=== PATIENT | female | born 1945 | race African-American/Black ===

== ENCOUNTER 2022-11-09 17:39 | Inpatient (IN) | payer MEDICARE, OTHER ==
[~2022-11-09] VITALS: Ht 167.6 cm; Wt 83.0 kg
[~2022-11-09 17:39] MED LIST: ALBU-118 IH; ASCO500S14 PO; ASPI-1205 PO; CALC600T56 PO; FURO-570 PO; HUM SUBQ; LANTUS SC; LOT20 PO; METF100028 PO; MOME13HF7 IH; MONT10TA35 PO; PRAV40TA1 PO; SPIR50TA PO
[2022-11-09 17:48] VITALS: BP 94/43
--- NOTE | 2022-11-09 17:51 | NUR ---
PT BIBA WITH ALS TO BED 6
[2022-11-09] MEDS ORDERED: methylPREDNISolone SS 125 MG/2 ML VIAL IVP ONE (17:55)
[2022-11-09] MEDS ORDERED: NACL 0.9% 500 ML IV ONE (17:55)
--- NOTE | 2022-11-09 18:08 | NUR ---
Lab at bedside
--- NOTE | 2022-11-09 18:24 | NUR ---
PER DR ALBARRAN, HOLD SOLUMEDROL IV
--- NOTE | 2022-11-09 18:35 | NUR ---
77 y/o female biba from home c/o difficulty breathing x 4 days. Patient has a cough with occasional productive cough. Patient also has low appetite. Patient denies any fever, chills or SOB. Patient has 20G IV to Left AC by EMS. Patient was also administered a breathing treatment by EMS. Medical History: DM, HTN, Asthma, Emphysema, NKDA
--- NOTE | 2022-11-09 18:37 | NUR ---
X-Ray at bedside.
[2022-11-09 18:41] LABS: HEMATOCRIT 35.6 % (36-48); HEMOGLOBIN 11.6 g/dL (12.0-16.0); MEAN CORPUSCULAR HEMOGLOBIN 30 pg (27-31); MEAN CORPUSCULAR HGB CONC 33 g/dL (33-37); MEAN CORPUSCULAR VOLUME 90.6 fL (80-94); PLATELET COUNT (AUTO) 362 K/uL (140-450); RED BLOOD CELL COUNT(AUTO) 3.93 MIL/uL (4.20-5.40); RED CELL DISTRIBUTION WIDTH 14.7 % (11.6-13.7)
[2022-11-09 18:57] LABS: WHITE BLOOD COUNT (AUTO) 30.2 K/uL (4.8-10.8)
[2022-11-09] MEDS ORDERED: VANCOMYCIN 1,000 MG in DEXTROSE 5% 250 ML IV ONE (19:15)
[2022-11-09] MEDS ORDERED: NACL 0.9% 1,000 ML IV ONE (19:15)
[2022-11-09] MEDS ORDERED: PIPERACILLIN/TAZOBACTAM 3.375 GM in DEXTROSE 5% 50 ML IV ONE (19:15)
[2022-11-09 19:17] LABS: ALBUMIN 1.6 g/dL (3.4-5.0); ANION GAP 21.4 (8-16); ASPARTATE AMINOTRANSFERASE 13 U/L (15-37); CARBON DIOXIDE 20.1 mmol/L (21-32); CHLORIDE 95 mmol/L (98-107); CREATININE 1.9 mg/dL (0.6-1.3); LYMPHOCYTES % (MANUAL) 2 % (20-46); MONOCYTES % (MANUAL) 2 % (5-12); POTASSIUM 4.5 mmol/L (3.5-5.1); SODIUM SERUM 132 mmol/L (136-145); UREA NITROGEN, BLOOD 40 mg/dL (7-18)
[2022-11-09 19:20] LABS: GLUCOSE 413 mg/dL (74-106)
--- NOTE | 2022-11-09 19:45 | NUR ---
RETURNED FROM [facility], UNABLE TO OBTAIN UA
[2022-11-09] MEDS ORDERED: PIPERACILLIN/TAZOBACTAM 3.375 GM VIAL IV ONE (19:57)
[2022-11-09] MEDS ORDERED: VANCOMYCIN 1,000 MG VIAL ONE (19:57)
--- NOTE | 2022-11-09 22:03 | NUR ---
PT TO BE ADMITTED HERE
[2022-11-09 22:08] LABS: PHOSPHORUS 3.1 mg/dL (2.5-4.9)
--- NOTE | 2022-11-09 22:10 | NUR ---
CM NOW SHOWS RAPID A-FIB RATE 150-160.
--- NOTE | 2022-11-09 22:18 | NUR ---
[facility] OBTAINED AND SENT TO LAB
[2022-11-09] MEDS ORDERED: AMIODARONE 150 MG in DEXTROSE 5% 100 ML IV ONE (22:30)
[2022-11-09] MEDS ORDERED: AMIODARONE 150 MG/3 ML VIAL IV ONE (22:30)
[2022-11-09] MEDS ORDERED: AMIODARONE 450 MG in DEXTROSE 5% 250 ML IV ONE (22:30)
--- NOTE | 2022-11-09 23:08 | NUR ---
TO CT VIA GURNEY ATTACHED TO CM ACCOMPANIED BY RN AND CATALOG SPECIALIST. AMIODARONE CONTINUES
--- NOTE | 2022-11-09 23:25 | NUR ---
RETURNED FROM CT
--- NOTE | 2022-11-10 01:00 | NUR ---
RESTING QUIETLY AT PRESENT, AMIODARONE CONTINUES, CM = A-FIB, HR DOWN, IS NOW 100-104
--- NOTE | 2022-11-10 02:00 | NUR ---
Patient appears to be resting comfortably in bed. Vital Signs within normal limits. Respirations even and unlabored.
--- NOTE | 2022-11-10 04:00 | NUR ---
CM NOW SHOWS SR WITHOUT ECTOPY. AMIODARONE CONTINUES.
[2022-11-10] MEDS ORDERED: ACETAMINOPHEN 325 MG TAB PO PRN (05:00)
[2022-11-10] MEDS ORDERED: VANCOMYCIN PER PHARMACY MC PRN ×2 (05:00→08:10)
[2022-11-10] MEDS ORDERED: ONDANSETRON 4 MG/2 ML VIAL IVP PRN (05:00)
--- NOTE | 2022-11-10 05:28 | NUR ---
CALL TO DR CORTES Addendum: 11/10/22 at [address] CORTES CONTINUE AMIODORONE DRIP AT 0.5MG/MIN. ORDER CARRIED OUT.
--- NOTE | 2022-11-10 05:46 | NUR ---
urine collected and sent to lab.
[2022-11-10] MEDS ORDERED: DEXTROSE 50% 50 ML SYR IVP PRN (05:50)
[2022-11-10] MEDS: DEXT 5% /NACL 0.9% 1,000 ML IV SCH ×3 (06:00→19:55)
[2022-11-10] MEDS: PIPERACILLIN/TAZOBACTAM 3.375 GM in DEXTROSE 5% 50 ML IV SCH ×3 (06:02→18:33)
[2022-11-10] MEDS ORDERED: PIPERACILLIN/TAZOBACTAM 3.375 GM VIAL IV ONE ×2 (06:04→12:12)
[2022-11-10 06:10] LABS: APPEARANCE,URINE CLEAR (CLEAR); BILIRUBIN,URINE 2+ (NEGATIVE); BLOOD, URINE NEGATIVE (NEGATIVE); COLOR,URINE DARK YELLOW (YELLOW); LEUKOCYTE ESTERASE ,URINE NEGATIVE (NEGATIVE); NITRITE, URINE NEGATIVE (NEGATIVE); UGLUCOSE 1+ (NEGATIVE)
[2022-11-10] MEDS ORDERED: AMIODARONE 450 MG in DEXTROSE 5% 250 ML IV SCH (07:32)
--- NOTE | 2022-11-10 08:15 | NUR ---
BS 385
--- NOTE | 2022-11-10 08:16 | NUR ---
Received pt on Amiodarone drip running at 0.5mg/min, 16.66ml/hr.
--- NOTE | 2022-11-10 08:16 | NUR ---
Pt on RA with 98% O2 saturation.
[2022-11-10] MEDS: BLOOD GLUCOSE MONITORING 1 DEV DEV FS SCH ×4 (08:20→21:40)
[2022-11-10] MEDS: INSULIN LANTUS 100 UNITS/ML 10 ML VIAL SUBQ SCH (08:24)
[2022-11-10] MEDS: INSULIN LISPRO SLIDING SCALE 100 UNITS/ML VIAL SUBQ PRN ×3 (08:24→21:39)
[2022-11-10] MEDS: DOCUSATE SODIUM 100 MG GELCAP PO SCH (08:26)
--- NOTE | 2022-11-10 09:13 | NUR ---
PATIENT HAS BEEN SCREENED AND CATEGORIZED MODERATE NUTRITION RISK. PATIENT WILL BE SEEN WITHIN 3-5 DAYS OF ADMISSION. REVIEWED BY JUDAH BUCHANAN RD
--- NOTE | 2022-11-10 09:52 | NUR ---
Pt ambulated to restroom with steady gait.
--- NOTE | 2022-11-10 11:05 | NUR ---
Maintainer Plant radha.
[2022-11-10 11:12] LABS: BASOPHILS % (AUTO) 0.2 % (0.0-2.0); EOSINOPHILS % (AUTO) 0.2 % (0.0-4.0); HEMOGLOBIN 10.8 g/dL (12.0-16.0); LYMPHOCYTES # (AUTO) 1.2 K/uL (2.5-16.5); LYMPHOCYTES % (AUTO) 6.3 % (20.5-51.1); MEAN CORPUSCULAR HEMOGLOBIN 30 pg (27-31); MEAN CORPUSCULAR HGB CONC 33 g/dL (33-37); MEAN CORPUSCULAR VOLUME 89.7 fL (80-94); MONOCYTES % (AUTO) 5.3 % (1.7-9.3); NEUTROPHILS # (AUTO) 16.4 K/uL (1.8-7.7); PLATELET COUNT (AUTO) 366 K/uL (140-450); RED BLOOD CELL COUNT(AUTO) 3.68 MIL/uL (4.20-5.40); RED CELL DISTRIBUTION WIDTH 14.7 % (11.6-13.7); WHITE BLOOD COUNT (AUTO) 18.7 K/uL (4.8-10.8)
[2022-11-10 11:20] LABS: ALBUMIN 1.9 g/dL (3.4-5.0); ANION GAP 16.1 (8-16); ASPARTATE AMINOTRANSFERASE 9 U/L (15-37); CARBON DIOXIDE 22.3 mmol/L (21-32); CHLORIDE 102 mmol/L (98-107); CREATININE 1.5 mg/dL (0.6-1.3); GLUCOSE 257 mg/dL (74-106); POTASSIUM 3.4 mmol/L (3.5-5.1); SODIUM SERUM 137 mmol/L (136-145); TOTAL BILIRUBIN 0.5 mg/dL (0.0-1.0); UREA NITROGEN, BLOOD 52 mg/dL (7-18)
--- NOTE | 2022-11-10 12:06 | NUR ---
BS 236
--- NOTE | 2022-11-10 12:08 | NUR ---
Pt providd with lunch tray.
--- NOTE | 2022-11-10 17:36 | NUR ---
BS 140
--- NOTE | 2022-11-10 17:50 | NUR ---
RECEIVED BEDSIDE REPORT FROM SUE RIVERA RN. PT TRANSFERRED VIA GURNEY. PT IS A&O X4, AWAKE. NC 3L. PERIPHERAL IV TO LT WRIST 22G, CLAMPED. RT WRIST 20G, RUNNING AMIODARONE DRIP @ 0.5 MG/MIN. BEDREST. CARDIAC DIET. CONTINENT. BED TO LOWEST POSITION, CALL LIGHT WITHIN REACH, WILL CONTINUE TO MONITOR.
[2022-11-10 18:00] VITALS: BP 106/49
--- NOTE | 2022-11-10 19:15 | NUR ---
ENDORSED TO CONSULTING ANALYST NURSE JOHN RN FOR CONTINUITY OF CARE. ALL QUESTIONS ANSWERED. VA VS STABLE.
--- NOTE | 2022-11-10 19:20 | NUR ---
RECEIVED PATIENT ON BED, AWAKE, ALERT AND ORIENTED ABLE TO MOVE LIMBS FREELY. ON 3 LITERS O2/NC S02 97%. WITH SOB ON EXERTION AND WITH WHEEZING BREATH SOUNDS NOTED. CARDIACSCOPE SHOWS ON SINUS RHYTHM HR 82/MIN , ON AMIODARONE DRIP AT 0.5 MG/HR VIA G20 IV CANNULA ON RIGHT WRIST; INTACT. ABDOMEN IS SOFT,OBESE,WITH ACTIVE BOWEL SOUNDS.
[2022-11-10] MEDS: BUDESONIDE 0.5 MG/2 ML NEBU INH SCH (19:30)
[2022-11-10 20:00] VITALS: BP 102/58
--- NOTE | 2022-11-10 20:00 | NUR ---
STARTED ON IVF D5 NS AT 80 L/HR VIA G 20 IV CANNULA ON RIGHT WRIST.
--- NOTE | 2022-11-10 20:30 | NUR ---
VISITED BY DAUGHTER; UPDATED PATIENT'S RESUSCITATION STATUS
[2022-11-10 21:00] VITALS: BP 107/54
[2022-11-10] MEDS ORDERED: POTASSIUM CHLORIDE 10 MEQ TABER PO ONE ×2 (21:20→21:23)
--- NOTE | 2022-11-10 21:30 | NUR ---
ASSISTED TO SIT ON BEDSIDE COMMODE, ABLE TO PASSED MODERATE AMOUNT OF SOFT FORM STOOL.
[2022-11-10 22:00] VITALS: BP 107/54
[2022-11-10] MEDS: ZOLPIDEM 5 MG TAB PO PRN (22:40)
[2022-11-10] MEDS ORDERED: LEVOFLOXACIN 500 MG/D5W PREMIX 100 ML IV SCH (22:45)
--- NOTE | 2022-11-10 22:45 | NUR ---
SEEN AND EXAMINED BY DR. ARAYA, WITH NEW ORDERS CARRIED OUT.
[2022-11-10 23:00] VITALS: BP 98/65
[2022-11-11] VITALS (14 sets, daily range): BP systolic 90–113; BP diastolic 47–83
[2022-11-11] MEDS ORDERED: BENZONATATE 100 MG CAPLF PO ONE (00:03)
--- NOTE | 2022-11-11 00:05 | NUR ---
PATIENT HAS ON AND OFF PRODUCTIVE COUGH, REFERRED TO DR. MCGHEE, WITH NEW ORDER CARRIED OUT.
[2022-11-11] MEDS: BENZONATATE 100 MG CAPLF PO PRN ×2 (00:29→21:40)
[2022-11-11] MEDS ORDERED: AMIODARONE 150 MG/3 ML VIAL IV ONE (00:40)
[2022-11-11] MEDS ORDERED: LEVOFLOXACIN 500 MG/D5W PREMIX 100 ML IV SCH (01:00)
[2022-11-11] MEDS: CLINDAMYCIN 600MG/D5W PM 50 ML IV SCH ×3 (01:03→17:18)
--- NOTE | 2022-11-11 02:50 | NUR ---
PT STARTED ON HFNC 20L 40% 33C DUE TO INCREASED WOB AND TACHYPNEA IN THE 40'S. PT STATES RELIEF AND APPEARS TO BE TOLERATING WELL. WILL CONTINUE TO MONITOR.
--- NOTE | 2022-11-11 05:00 | NUR ---
ABLE TO SLEEP QUITE WELL IN THE NIGHT.
[2022-11-11 06:14] LABS: BASOPHILS % (AUTO) 0.3 % (0.0-2.0); EOSINOPHILS # (AUTO) 0.1 K/uL (0-0.4); EOSINOPHILS % (AUTO) 0.6 % (0.0-4.0); HEMATOCRIT 30.9 % (36-48); HEMOGLOBIN 10.1 g/dL (12.0-16.0); LYMPHOCYTES # (AUTO) 1.1 K/uL (2.5-16.5); MEAN CORPUSCULAR HEMOGLOBIN 29 pg (27-31); MEAN CORPUSCULAR HGB CONC 33 g/dL (33-37); MEAN CORPUSCULAR VOLUME 89.5 fL (80-94); MONOCYTES # (AUTO) 0.9 K/uL (0.8-1.0); MONOCYTES % (AUTO) 6.3 % (1.7-9.3); NEUTROPHILS # (AUTO) 11.9 K/uL (1.8-7.7); PLATELET COUNT (AUTO) 337 K/uL (140-450); RED BLOOD CELL COUNT(AUTO) 3.45 MIL/uL (4.20-5.40); RED CELL DISTRIBUTION WIDTH 14.4 % (11.6-13.7); WHITE BLOOD COUNT (AUTO) 13.9 K/uL (4.8-10.8)
[2022-11-11 06:33] LABS: ASPARTATE AMINOTRANSFERASE 19 U/L (15-37); CARBON DIOXIDE 20.6 mmol/L (21-32); CHLORIDE 104 mmol/L (98-107); CREATININE 1.4 mg/dL (0.6-1.3); GLUCOSE 303 mg/dL (74-106); POTASSIUM 3.6 mmol/L (3.5-5.1); SODIUM SERUM 135 mmol/L (136-145); TOTAL BILIRUBIN 0.4 mg/dL (0.0-1.0); UREA NITROGEN, BLOOD 48 mg/dL (7-18)
[2022-11-11] MEDS: BUDESONIDE 0.5 MG/2 ML NEBU INH SCH ×2 (06:36→19:30)
[2022-11-11] MEDS: IPRATROPIUM 0.02% 0.5 MG/2.5 ML NEBU INH PRN (06:37)
[2022-11-11] MEDS: LEVALBUTEROL 1.25 MG/0.5 ML NEBU INH PRN (06:38)
[2022-11-11 06:46] LABS: ALBUMIN 1.8 g/dL (3.4-5.0)
--- NOTE | 2022-11-11 07:00 | NUR ---
RECEIVED PT ON HFNC 20L, 40%, 33 DEGREE. EQUAL CHEST RISE, COARSE BREATH SOUNDS, PT SATURATION WAS 98%. STRONG COUGH. WILL CONTINUE TO MONITOR.
[2022-11-11 07:25] LABS: LYMPHOCYTES % (AUTO) 7.8 % (20.5-51.1)
--- NOTE | 2022-11-11 07:30 | NUR ---
RECEIVED PT IN HOSPITAL BED AOX4. ON IGH FLOW 20L 40% TOLERATING WELL 97% RA. NSR ON MONITOR. IV INTACT AND PATENT INFUSING AMIODARONE PER ORDER. NAD. SAFETY MAINTAINED.
[2022-11-11] MEDS: BLOOD GLUCOSE MONITORING 1 DEV DEV FS SCH ×4 (08:00→21:29)
--- NOTE | 2022-11-11 09:00 | NUR ---
PT ASSISTED TO BSC, HAD BM, ASSISTED BACK TO BED.
[2022-11-11] MEDS: DOCUSATE SODIUM 100 MG GELCAP PO SCH (09:05)
[2022-11-11 09:06] LABS: LACTATE DEHYDROGENASE 196 IU/L (119-226)
[2022-11-11] MEDS: INSULIN LANTUS 100 UNITS/ML 10 ML VIAL SUBQ SCH (09:07)
--- NOTE | 2022-11-11 09:42 | NUR ---
0910 SPUTUM SAMPLE OBTAINED AND WALKED TO LAB.
--- NOTE | 2022-11-11 10:46 | NUR ---
DR MCGHEE AT BEDSIDE, ORDERS TO STOP AMIODARONE AND START PO.
[2022-11-11] MEDS: INSULIN LISPRO SLIDING SCALE 100 UNITS/ML VIAL SUBQ PRN ×2 (11:47→17:20)
--- NOTE | 2022-11-11 12:22 | NUR ---
PT RESTING IN [facility] C/O BACK PAIN MEDICATED PER ORDER. NSR ON MONITOR. EATING LUNCH IN BED. NAD. SAFETY MAINTAINED.
[2022-11-11] MEDS: HYDROcodone/APAP 5/325 MG 1 TAB TAB PO PRN ×2 (12:23→17:59)
--- NOTE | 2022-11-11 13:45 | NUR ---
DR SMITH AT BEDSIDE, DOWNGRADE TO TELE. PT NSR ON MONITOR. REMAINS ON HIGH FLOW TOLERATING WELL. NAD. SAFETY MAINTAINED
--- NOTE | 2022-11-11 16:32 | NUR ---
PT RESTING IN BED, NSR ON MONITOR. NO CHANGES NOTED. SAFETY MAINTAINED.
--- NOTE | 2022-11-11 17:21 | NUR ---
dr maravilla at bedside
[2022-11-11] MEDS: DEXT 5% /NACL 0.9% 1,000 ML IV SCH (18:30)
--- NOTE | 2022-11-11 19:10 | NUR ---
RECEIVED REPORT FROM GRAYSON SPAULDING.PT IS LYING ON HER RIGHT SIDE NO DISTRESS NOTED . PT STATES SHE FEELS [facility] BETTER THAN SHE FELT YESTERDAY. STATES HER ONLY PROBLEM NOW SHE'S A&OX4, SHE HAS A GOOD APPETITE. HER LUNGS ARE CLEAR SHE IS ON HI FLOW 02 AT 20L/30%. SHE HAS IV ACCESS IN THE ALLIE A 20 GAUGE. PT HAS BEEN DOWNGRADED TO TELEMETRY.
[2022-11-11] MEDS ORDERED: AMIODARONE 200 MG TAB PO SCH (21:00)
[2022-11-11] MEDS: AMIODARONE 200 MG TAB PO SCH (21:30)
[2022-11-11] MEDS: ZOLPIDEM 5 MG TAB PO PRN (21:30)
--- NOTE | 2022-11-11 21:30 | NUR ---
Pt has a non productive dry cough. she was given the tessalon perles. she was reluctant to take it because she said she told the doctor that they didn't help her at all. she took the little capsule but she said she'd address it with the md in the AM.
--- NOTE | 2022-11-11 22:35 | NUR ---
DAUGHTER IS AT THE BEDSIDE.
[2022-11-12] VITALS (7 sets, daily range): BP systolic 100–128; BP diastolic 52–69
[2022-11-12] MEDS: CLINDAMYCIN 600MG/D5W PM 50 ML IV SCH ×3 (00:10→17:29)
[2022-11-12] MEDS ORDERED: LEVOFLOXACIN 250 MG/D5 PREMIX 50 ML IV SCH (01:00)
[2022-11-12] MEDS: LEVALBUTEROL 1.25 MG/0.5 ML NEBU INH PRN ×3 (03:17→19:59)
[2022-11-12 05:55] LABS: BASOPHILS % (AUTO) 0.2 % (0.0-2.0); EOSINOPHILS # (AUTO) 0.1 K/uL (0-0.4); EOSINOPHILS % (AUTO) 0.7 % (0.0-4.0); HEMATOCRIT 29.9 % (36-48); HEMOGLOBIN 9.8 g/dL (12.0-16.0); LYMPHOCYTES # (AUTO) 0.8 K/uL (2.5-16.5); LYMPHOCYTES % (AUTO) 6.5 % (20.5-51.1); MEAN CORPUSCULAR HEMOGLOBIN 29 pg (27-31); MEAN CORPUSCULAR HGB CONC 33 g/dL (33-37); MEAN CORPUSCULAR VOLUME 89.2 fL (80-94); MONOCYTES # (AUTO) 0.7 K/uL (0.8-1.0); MONOCYTES % (AUTO) 5.6 % (1.7-9.3); NEUTROPHILS # (AUTO) 10.6 K/uL (1.8-7.7); PLATELET COUNT (AUTO) 359 K/uL (140-450); RED BLOOD CELL COUNT(AUTO) 3.36 MIL/uL (4.20-5.40); RED CELL DISTRIBUTION WIDTH 14.5 % (11.6-13.7); WHITE BLOOD COUNT (AUTO) 12.2 K/uL (4.8-10.8)
[2022-11-12 06:34] LABS: ALBUMIN 1.4 g/dL (3.4-5.0); ASPARTATE AMINOTRANSFERASE 19 U/L (15-37); CARBON DIOXIDE 23.6 mmol/L (21-32); CHLORIDE 107 mmol/L (98-107); GLUCOSE 164 mg/dL (74-106); MAGNESIUM 2.2 mg/dL (1.8-2.4); POTASSIUM 3.6 mmol/L (3.5-5.1); SODIUM SERUM 139 mmol/L (136-145); TOTAL BILIRUBIN 0.4 mg/dL (0.0-1.0); UREA NITROGEN, BLOOD 36 mg/dL (7-18)
[2022-11-12] MEDS: guaiFENesin DM SUGAR FREE 100 MG/5 ML UDBTL PO PRN ×2 (06:41→22:51)
--- NOTE | 2022-11-12 07:05 | NUR ---
REPORT GIVEN TO AM RN, PT NOT HERE YET FROM ICU.
[2022-11-12] MEDS: BUDESONIDE 0.5 MG/2 ML NEBU INH SCH ×2 (07:50→19:57)
[2022-11-12] MEDS: IPRATROPIUM 0.02% 0.5 MG/2.5 ML NEBU INH PRN (07:50)
[2022-11-12] MEDS: BLOOD GLUCOSE MONITORING 1 DEV DEV FS SCH ×4 (08:12→20:42)
[2022-11-12] MEDS: INSULIN LISPRO SLIDING SCALE 100 UNITS/ML VIAL SUBQ PRN ×3 (08:13→17:27)
[2022-11-12] MEDS: INSULIN LANTUS 100 UNITS/ML 10 ML VIAL SUBQ SCH (09:00)
[2022-11-12] MEDS: DOCUSATE SODIUM 100 MG GELCAP PO SCH (10:45)
[2022-11-12] MEDS: AMIODARONE 200 MG TAB PO SCH ×2 (10:45→21:17)
--- NOTE | 2022-11-12 19:54 | NUR ---
ENDORSE PATIENT IN STABLE CONDITION T PM SHIFT NURSE WITH 2 LITER OXYGEN GIVE VIA NC, PIV 20G R. AC SALINE LOCK
--- NOTE | 2022-11-12 20:42 | NUR ---
BLOOD SUGAR CHECK = 149, NO SLIDING SCALE COVERAGE. NO INSULIN NEEDED.
--- NOTE | 2022-11-12 22:51 | NUR ---
PT COMPLAINTS OF COUGHING, UNPRODUCTIVE COUGH HEARD OCCASIONALLY. COUGH SYRUP SUGAR FREE ADMINISTERED ORDER.
[2022-11-13] VITALS: BP 130/62
[2022-11-13] MEDS: CLINDAMYCIN 600MG/D5W PM 50 ML IV SCH ×3 (01:20→17:07)
[2022-11-13 04:00] VITALS: BP 112/41
[2022-11-13 05:54] LABS: BASOPHILS % (AUTO) 0.3 % (0.0-2.0); EOSINOPHILS % (AUTO) 0.4 % (0.0-4.0); HEMATOCRIT 28.7 % (36-48); HEMOGLOBIN 9.5 g/dL (12.0-16.0); LYMPHOCYTES # (AUTO) 0.9 K/uL (2.5-16.5); LYMPHOCYTES % (AUTO) 8.2 % (20.5-51.1); MEAN CORPUSCULAR HEMOGLOBIN 29 pg (27-31); MEAN CORPUSCULAR HGB CONC 33 g/dL (33-37); MEAN CORPUSCULAR VOLUME 89.3 fL (80-94); MONOCYTES % (AUTO) 8.6 % (1.7-9.3); NEUTROPHILS # (AUTO) 9.6 K/uL (1.8-7.7); NEUTROPHILS % (AUTO) 82.5 % (42.2-75.2); PLATELET COUNT (AUTO) 388 K/uL (140-450); RED BLOOD CELL COUNT(AUTO) 3.22 MIL/uL (4.20-5.40); RED CELL DISTRIBUTION WIDTH 14.5 % (11.6-13.7); WHITE BLOOD COUNT (AUTO) 11.6 K/uL (4.8-10.8)
--- NOTE | 2022-11-13 06:38 | NUR ---
PT BLOOD SUGAR = 162 = 2 UNITS HUMOLOG INSULIN ADMINISTERED. PT TOLERATES WELL.
[2022-11-13] MEDS: BLOOD GLUCOSE MONITORING 1 DEV DEV FS SCH ×4 (06:44→21:24)
[2022-11-13] MEDS: INSULIN LISPRO SLIDING SCALE 100 UNITS/ML VIAL SUBQ PRN ×4 (06:46→21:28)
[2022-11-13 07:25] LABS: ALBUMIN 1.4 g/dL (3.4-5.0); ANION GAP 13.2 (8-16); ASPARTATE AMINOTRANSFERASE 16 U/L (15-37); CARBON DIOXIDE 25.6 mmol/L (21-32); CHLORIDE 106 mmol/L (98-107); GLUCOSE 165 mg/dL (74-106); POTASSIUM 3.8 mmol/L (3.5-5.1); SODIUM SERUM 141 mmol/L (136-145); TOTAL BILIRUBIN 0.3 mg/dL (0.0-1.0); UREA NITROGEN, BLOOD 23 mg/dL (7-18)
[2022-11-13 08:00] VITALS: BP 129/49
[2022-11-13] MEDS: AMIODARONE 200 MG TAB PO SCH ×2 (09:03→21:29)
[2022-11-13] MEDS: LEVOFLOXACIN 500 MG/D5W PREMIX 100 ML IV SCH (09:04)
[2022-11-13] MEDS: INSULIN LANTUS 100 UNITS/ML 10 ML VIAL SUBQ SCH (09:13)
[2022-11-13] MEDS: DOCUSATE SODIUM 100 MG GELCAP PO SCH (09:15)
[2022-11-13 12:00] VITALS: BP 129/49
[2022-11-13] MEDS: guaiFENesin DM SUGAR FREE 100 MG/5 ML UDBTL PO PRN (13:33)
[2022-11-13 16:00] VITALS: BP 133/79
[2022-11-13] MEDS: BUDESONIDE 0.5 MG/2 ML NEBU INH SCH (19:30)
--- NOTE | 2022-11-13 19:39 | NUR ---
RECEIVED ENDORSEMENT FROM DAY SHIFT NURSE FOR CONTINUITY OF CARFE. PT IS AWAKE, ALERT AND VERBALLY RESPONSIVE. IV ON RIGHT FOREARM INTACT AND ATB INFUSING. NO SOB OR DISTRESS, RESPIRATION EVEN.
--- NOTE | 2022-11-13 19:40 | NUR ---
ENDORSE PATIENT IN STABLE CONDITION T PM SHIFT NURSE WITH 3 LITER OXYGEN GIVE VIA NC, PIV 20G R. AC SALINE LOCK
[2022-11-13 20:00] VITALS: BP 124/79
--- NOTE | 2022-11-13 21:28 | NUR ---
BLOOD SUGAR CHECK = 192 = 2 UNITS HUMALOG INSULIN ADMINISTERED.
[2022-11-14] VITALS: BP 124/79
[2022-11-14] MEDS: CLINDAMYCIN 600MG/D5W PM 50 ML IV SCH ×2 (01:00→08:52)
--- NOTE | 2022-11-14 01:10 | NUR ---
PT IV LINE IS LEAKING AND DISLODGE.
--- NOTE | 2022-11-14 02:00 | NUR ---
PT'S BOTH ARMS ARE SWOLLEN AND UNABLE TO FIND THE VEINS. NOT ABLE TO ADMINISTER IV ANTIBIOTIC CLINDAMYCIN VIA IV. REPORTED TO DR. ELISA MD HOLD ANTIBIOTIC AT THIS THIS TIME. HE ALSO AGREE TO ORDER PICC LINE OR MID LINE. OR MAKAYLA CARRY OUT.
[2022-11-14 04:00] VITALS: BP 127/65
[2022-11-14 05:34] LABS: BASOPHILS % (AUTO) 0.2 % (0.0-2.0); EOSINOPHILS # (AUTO) 0.1 K/uL (0-0.4); EOSINOPHILS % (AUTO) 0.7 % (0.0-4.0); HEMATOCRIT 29.5 % (36-48); HEMOGLOBIN 9.9 g/dL (12.0-16.0); LYMPHOCYTES # (AUTO) 0.9 K/uL (2.5-16.5); MEAN CORPUSCULAR HEMOGLOBIN 29 pg (27-31); MEAN CORPUSCULAR HGB CONC 34 g/dL (33-37); MEAN CORPUSCULAR VOLUME 87.5 fL (80-94); MONOCYTES # (AUTO) 0.8 K/uL (0.8-1.0); MONOCYTES % (AUTO) 7.4 % (1.7-9.3); NEUTROPHILS # (AUTO) 9.2 K/uL (1.8-7.7); NEUTROPHILS % (AUTO) 83.7 % (42.2-75.2); PLATELET COUNT (AUTO) 453 K/uL (140-450); RED BLOOD CELL COUNT(AUTO) 3.37 MIL/uL (4.20-5.40); RED CELL DISTRIBUTION WIDTH 14.6 % (11.6-13.7)
--- NOTE | 2022-11-14 06:25 | NUR ---
PT COMPLAINTS OF COUGH, COUGH SYRUP ADMINISTERED ORDER, SUGAR FREE.
[2022-11-14 06:31] LABS: ALBUMIN 1.9 g/dL (3.4-5.0); ANION GAP 14.5 (8-16); ASPARTATE AMINOTRANSFERASE 17 U/L (15-37); CARBON DIOXIDE 24.3 mmol/L (21-32); CHLORIDE 106 mmol/L (98-107); GLUCOSE 173 mg/dL (74-106); MAGNESIUM 1.6 mg/dL (1.8-2.4); POTASSIUM 3.8 mmol/L (3.5-5.1); SODIUM SERUM 141 mmol/L (136-145); TOTAL BILIRUBIN 0.3 mg/dL (0.0-1.0); UREA NITROGEN, BLOOD 16 mg/dL (7-18)
[2022-11-14] MEDS: BLOOD GLUCOSE MONITORING 1 DEV DEV FS SCH ×4 (06:31→21:00)
--- NOTE | 2022-11-14 06:32 | NUR ---
BLOOD SUGAR CHECK = 170 = 2 UNITS OF HUMOLOG.
[2022-11-14] MEDS: INSULIN LISPRO SLIDING SCALE 100 UNITS/ML VIAL SUBQ PRN ×3 (06:33→17:28)
[2022-11-14] MEDS: BUDESONIDE 0.5 MG/2 ML NEBU INH SCH ×2 (07:30→20:27)
--- NOTE | 2022-11-14 07:50 | NUR ---
PT REFUSED TX SHE IS SLEEPING WITH NO SIGNS OF RESP DISTRESS. WILL CONTINUE TO MONITOR.
[2022-11-14 08:00] VITALS: BP 139/82
--- NOTE | 2022-11-14 08:04 | NUR ---
DC PLANNING SW MET WITH PT AT BEDSIDE TO COMPLETE ASSESSMENT. PT REPORTS RESIDING IN A SINGLE STORY HOME WITH HER BROTHER AND TWO ADULTS, AT THE ADDRESS LISTED ON FILE. PT IDENTIFIED PANCHITO JIMENEZ, DAUGHTER, AND AGNIESZKA NAIDU, SON, EMERGENCY CONTACTS. PT DENIED AD IN PLACE AND ACCEPTED AD OFFERED BY SW. PT REPORTS MEETING W/PCP DR. LINARES REGULARLY, LAST VISIT; OCT 26. PT REPORTS MEDICATION COMPLIANCE AND REPORTS RECEIVING MEDICATION FROM [facility] ON [address] IN [place], WHEN NEEDED. PT REPORTS BEING INDEPENDENT IN ALL ACTIVITIES AND DENIES USE OF DME. PT DENIES MH/SANDOVAL HX. PT REPORTS HX OF DIABETES THAT IS REPORTED TO BE WELL MANAGED. PT DENIES HX OF DIALYSIS TX, HH, SNF PLACEMENT. PT REPORTS ADEQUATE FRIEND AND FAMILY SUPPORT. PT REPORTS ADEQUATE ACCESS TO FOOD. PT REPORTS DC PLAN IS TO RETURN HOME W/DAUGHTER OR SON PROVIDING TRANSPORTATIONS, WHEN MEDICALLY STABLE. SW INQUIRED ON ADDITIONAL RESOURCES NEEDED, PT DECLINED. Addendum: 11/14/22 at 0806 by Jacques COBURN Amended: Links added.
[2022-11-14] MEDS: LEVOFLOXACIN 500 MG/D5W PREMIX 100 ML IV SCH (08:53)
[2022-11-14] MEDS: DOCUSATE SODIUM 100 MG GELCAP PO SCH (08:54)
[2022-11-14] MEDS: AMIODARONE 200 MG TAB PO SCH ×2 (08:54→22:36)
[2022-11-14] MEDS: INSULIN LANTUS 100 UNITS/ML 10 ML VIAL SUBQ SCH (08:56)
--- NOTE | 2022-11-14 10:27 | NUR ---
ASSESSMENT COMPLETED MD IN PICC LINE ORDER CANCELED O2 REMOVED PT ON ROOM AIR RT MADE AWARE TO BRING IS TO BEDSIDE
[2022-11-14 12:00] VITALS: BP 141/79
[2022-11-14] MEDS: CLINDAMYCIN 150 MG CAP PO SCH ×2 (12:00→17:28)
--- NOTE | 2022-11-14 12:30 | NUR ---
PT WAS GIVEN INCENTIVE SPIROMETER AND INSTRUCTED HOW TO USE IT PROPERLY. PT STATED SHE USED IT PREVIOUSLY AND IS AWARE. RN AWARE. WILL CONTINUE TO MONITOR. NO DISTRESS NOTED.
[2022-11-14 16:00] VITALS: BP 136/68
[2022-11-14] MEDS: LEVALBUTEROL 1.25 MG/0.5 ML NEBU INH PRN ×2 (16:41→20:26)
--- NOTE | 2022-11-14 16:56 | NUR ---
11/14/22 RD INITIAL ASSESSMENT COMPLETED PLEASE REFER TO NUTRITION ASSESSMENT UNDER CARE ACTIVITY FOR ESTIMATED NUTRITIONAL NEEDS. 1. CONTINUE CARDIAC DIET 2. RECOMMEND ADDING CCHO 60 GRAM TO DIET. 3. RECOMMEND GLUCERNA BID. - GLUCERNA BID WILL PROVIDE 440 KCAL AND 20 GRAMS PROTEIN. 4. SERVICE ASSISTANT PROVIDED DIABETES EDUCATION. 5. MONITOR BLOOD GLUCOSE, LAB VALUES, PO INTAKE, AND GI. 6. RD TO FOLLOW-UP 3-5 DAYS, MODERATE RISK REVIEWED BY JUDAH BUCHANAN RD
[2022-11-14 20:00] VITALS: BP 125/60
[2022-11-14] MEDS: IPRATROPIUM 0.02% 0.5 MG/2.5 ML NEBU INH PRN (20:26)
[2022-11-15] VITALS: BP 130/62
[2022-11-15] MEDS: CLINDAMYCIN 150 MG CAP PO SCH ×3 (00:53→11:39)
[2022-11-15] MEDS ORDERED: guaiFENesin 20 MG/ML UDC ONE (01:15)
[2022-11-15 04:00] VITALS: BP 130/62
[2022-11-15 05:53] LABS: BASOPHILS % (AUTO) 0.5 % (0.0-2.0); EOSINOPHILS # (AUTO) 0.1 K/uL (0-0.4); EOSINOPHILS % (AUTO) 1.5 % (0.0-4.0); HEMATOCRIT 30.2 % (36-48); HEMOGLOBIN 10.3 g/dL (12.0-16.0); LYMPHOCYTES # (AUTO) 1.2 K/uL (2.5-16.5); LYMPHOCYTES % (AUTO) 13.1 % (20.5-51.1); MEAN CORPUSCULAR HEMOGLOBIN 30 pg (27-31); MEAN CORPUSCULAR HGB CONC 34 g/dL (33-37); MONOCYTES # (AUTO) 0.8 K/uL (0.8-1.0); MONOCYTES % (AUTO) 8.4 % (1.7-9.3); NEUTROPHILS # (AUTO) 6.9 K/uL (1.8-7.7); NEUTROPHILS % (AUTO) 76.5 % (42.2-75.2); PLATELET COUNT (AUTO) 528 K/uL (140-450); RED BLOOD CELL COUNT(AUTO) 3.48 MIL/uL (4.20-5.40); RED CELL DISTRIBUTION WIDTH 14.2 % (11.6-13.7)
[2022-11-15 06:08] LABS: LD3 FRACTION 19 % (17-27); LD4 FRACTION 13 % (5-13)
[2022-11-15 06:34] LABS: ALBUMIN 1.9 g/dL (3.4-5.0); ANION GAP 12.7 (8-16); ASPARTATE AMINOTRANSFERASE 18 U/L (15-37); CHLORIDE 104 mmol/L (98-107); CREATININE 0.9 mg/dL (0.6-1.3); GLUCOSE 176 mg/dL (74-106); MAGNESIUM 1.7 mg/dL (1.8-2.4); POTASSIUM 3.7 mmol/L (3.5-5.1); SODIUM SERUM 139 mmol/L (136-145); TOTAL BILIRUBIN 0.4 mg/dL (0.0-1.0); UREA NITROGEN, BLOOD 15 mg/dL (7-18)
[2022-11-15] MEDS: BLOOD GLUCOSE MONITORING 1 DEV DEV FS SCH ×2 (06:40→11:35)
[2022-11-15] MEDS: INSULIN LISPRO SLIDING SCALE 100 UNITS/ML VIAL SUBQ PRN ×2 (06:41→11:38)
[2022-11-15 08:00] VITALS: BP 141/56
[2022-11-15] MEDS: AMIODARONE 200 MG TAB PO SCH (08:27)
[2022-11-15] MEDS: DOCUSATE SODIUM 100 MG GELCAP PO SCH (08:28)
[2022-11-15] MEDS: INSULIN LANTUS 100 UNITS/ML 10 ML VIAL SUBQ SCH (08:29)
--- NOTE | 2022-11-15 08:30 | NUR ---
PATIENT WITH BREAKFAST TRAY AT THIS TIME REQUESTING HHN THERAPY AT A LATER TIME
[2022-11-15] MEDS ORDERED: levoFLOXacin 500 MG TAB PO SCH (09:00)
--- NOTE | 2022-11-15 09:00 | NUR ---
NURSES NOTE PATIENT RECEIVED AT BED SIDE , A/OX4 , VSS , SINUS ON MONITOR , SAFETY ON PLACE , BED IN LOWER POSITION , CALL LIGHT WITHIN REACH , SIDE RAILS UP X3 SKIN INTACT , AMBULATORY , STEADY , CONTINENT X2 , TOILET USED , NO COMPLAIN AT THIS TIME STILL UNDER OBSERVE .
[2022-11-15] MEDS: BUDESONIDE 0.5 MG/2 ML NEBU INH SCH (09:52)
[2022-11-15] MEDS: IPRATROPIUM 0.02% 0.5 MG/2.5 ML NEBU INH PRN (09:52)
[2022-11-15] MEDS: LEVALBUTEROL 1.25 MG/0.5 ML NEBU INH PRN (09:52)
[2022-11-15 12:00] VITALS: BP 131/61
--- NOTE | 2022-11-15 14:09 | NUR ---
DC PLANNING: BRUNA QUINTANILLA CM AT [facility] ARRANGED HOME HEALTH WITH [facility] [phone] ACCEPTED PATIENT. NOTIFIED GELY SPAULDING. Addendum: 11/15/22 at 1415 by Jacqueline Quezada RN DC PLANING: BRUNA QUINTANILLA AT [facility] DEYA ARRANGED PCP APPOINTMENT ON DEC 05 AT 11:30 AM NOTIFIED PATIENT. CM TO FOLLOW
--- NOTE | 2022-11-15 14:10 | NUR ---
NURSES NOTE PATIENT STABLE NO COMPLAIN .
[2022-11-15] MEDS ORDERED: [UNRECOGNIZED DRUG - CODE] PO (15:45)
[2022-11-15] MEDS ORDERED: LEVO-481 PO (15:45)
--- NOTE | 2022-11-15 16:52 | NUR ---
NURSES NOTE PATIENT A/OX4 , DISCHARGE HOME , NO COMPLAIN , VSS , MONITOR REMOVED AND ARM BAND , NO IV ACCESS ASSISTED TO LOBBY BY WHEAL CHAIR , DISCHARGE PACK IT EXPLAIN FOR PATIENT PATIENT VERBALIZED UNDERSTANDING OF GIVEN , ALL DOCUMENT SIGN AND PLACE ON CHART , ADDERSS FOR PATIENT SHE HAS PRESCRIPTION FROM [facility] , MEDICATION RECONCILED ,.
[2022-11-15 22:18] LABS: LD1 FRACTION 12 % (17-32); LD2 FRACTION 24 % (25-40)
[2022-11-15 22:19] LABS: LD5 FRACTION 32 % (4-20)
== END 2022-11-15 16:45 | disposition home or self-care (01) | DRG 871 ==
LOC: MED 17:39 → MMU 11-10 05:09 → MIC 11-10 16:55 → MMU 11-12 06:11
PROVIDERS: ADMIT Internal Medicine; ATTEND Internal Medicine
PROC: 5A0935A Assistance with Respiratory Ventilation, Less than 24 Consecutive Hours, High Flow/Velocity Cannula (ICD-10-PCS; principal; 2022-11-11)
DX: A41.9 Sepsis, unspecified organism (principal); J18.9 Pneumonia, unspecified organism; J96.01 Acute respiratory failure with hypoxia; I31.39 Other pericardial effusion (noninflammatory); I48.20 Chronic atrial fibrillation, unspecified; J45.901 Unspecified asthma with (acute) exacerbation; N17.9 Acute kidney failure, unspecified; I10 Essential (primary) hypertension; E78.5 Hyperlipidemia, unspecified; E11.9 Type 2 diabetes mellitus without complications; R00.0 Tachycardia, unspecified; R65.20 Severe sepsis without septic shock; Z79.82 Long term (current) use of aspirin; Z79.899 Other long term (current) drug therapy; Z90.710 Acquired absence of both cervix and uterus; Z79.4 Long term (current) use of insulin; Z79.01 Long term (current) use of anticoagulants
CPT/HCPCS: 36415; 71045; 71275; 80053; 80202; 81003; 82948; 83605; 83625; 83735; 83880; 84100; 84484; 85025; 85379; 87040; 87070; 87081; 87205; 89220; 93005; 94640; 96361; 96365; 96367; 97116; 97163-GP; 97530; 99291; J0282; J1644; J1815; J1956; J2405; J2543; J2930; J3370; J3490; J7030; J7060; J7612; J7626; J7644; Q9967